=== PATIENT | female | born 2000 | race Caucasian/White ===

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

== ENCOUNTER 2020-05-30 13:18 | Emergency (ER) | payer OTHER ==
[~2020-05-30] VITALS: Ht 157.5 cm; Wt 152.4 kg
[~2020-05-30 13:18] MED LIST changes: -METH54TA; +METH54TA5
[2020-05-30] MEDS ORDERED: IBUPROFEN (13:25)
[2020-05-30 14:27] LABS: BASO % 0.4 % (0.0-1.0); EOS # 0.5 10^3/uL (0.0-0.5); EOS % 4.2 % (0.0-3.0); HEMATOCRIT 43.4 % (36.0-47.0); HEMOGLOBIN 14.6 g/dl (12.0-15.5); LYMPH # 2.4 10^3/uL (1.5-5.0); LYMPH % 21.4 % (24.0-44.0); MEAN CORPUSCULAR HGB CONC 33.6 g/dl (32.0-36.5); MEAN CORPUSCULAR VOLUME 89.1 fl (80.0-96.0); MONO # 0.7 10^3/uL (0.0-0.8); MONO % 6.5 % (0.0-5.0); NEUTROPHILS # 7.6 10^3/uL (1.5-8.5); NEUTROPHILS % 66.7 % (36.0-66.0); PLATELET COUNT, AUTOMATED 388 10^3/uL (150-450); RED BLOOD COUNT 4.87 10^6/uL (4.00-5.40); WHITE BLOOD COUNT 11.4 10^3/uL (4.0-10.0)
--- NOTE | 2020-05-30 15:24 | REP ---
Clinical: Pelvic pain. Technique: Transabdominal pelvic ultrasound followed by transvaginal examination for better evaluation of the endometrium and adnexa. Findings: Bladder is under distended and measures 4.1 x 1.3 x 2.3 cm. Anteverted uterus measures 8.9 x 3.8 x 4.6 cm. Endometrial complex measures 8.3 mm thickness. No discrete uterine or endometrial abnormalities identified. The bilateral ovaries are not visualized. No pelvic fluid or obvious adnexal mass lesion. Impression: Limited examination due to technical factors and body habitus. Normal uterus. Ovaries not visualized. Electronically Signed by Norman Desir MD 05/30/2020 03:15 P
[2020-05-30] MEDS ORDERED: ACETAMINOPHEN 500 MG TAB PO ONE (15:30)
[2020-05-30] MEDS ORDERED: NS 1,000 ML IV ONE (15:30)
[2020-05-30] MEDS ORDERED: KETOROLAC 30 MG/ML 1ML VIAL IV ONE (16:00)
[2020-05-30 16:55] VITALS: BP 121/58
[2020-05-30 16:57] LABS: CHLAMYDIA DNA AMPLIFICATION NEGATIVE (NEGATIVE); GC DNA AMPLIFICATION NEGATIVE (NEGATIVE)
== END 2020-05-30 17:43 | disposition home or self-care (01) ==
LOC: M ED 13:18
DX: N94.4 Primary dysmenorrhea (principal); E28.2 Polycystic ovarian syndrome; Z87.42 Personal history of other diseases of the female genital tract; Z87.442 Personal history of urinary calculi
CPT/HCPCS: 76830; 76856; 80047; 81001; 84702; 85025; 87210; 87661; 96361; 96374; 99284; J1885

== ENCOUNTER 2020-10-20 08:56 | Emergency (ER) | payer OTHER ==
[~2020-10-20] VITALS: Ht 160 cm; Wt 151.0 kg
[~2020-10-20 08:56] MED LIST changes: +IBUPROFEN
[2020-10-20] MEDS ORDERED: NS 1,000 ML IV ONE (09:15)
[2020-10-20 09:45] LABS: BASO % 0.1 % (0.0-1.0); EOS # 0.1 10^3/uL (0.0-0.5); EOS % 1.2 % (0.0-3.0); HEMATOCRIT 39.8 % (36.0-47.0); HEMOGLOBIN 13.2 g/dl (12.0-15.5); LYMPH # 1.5 10^3/uL (1.5-5.0); MEAN CORPUSCULAR HEMOGLOBIN 29.1 pg (27.0-33.0); MEAN CORPUSCULAR HGB CONC 33.2 g/dl (32.0-36.5); MEAN CORPUSCULAR VOLUME 87.7 fl (80.0-96.0); MONO # 0.6 10^3/uL (0.0-0.8); MONO % 5.8 % (0.0-5.0); NEUTROPHILS # 7.2 10^3/uL (1.5-8.5); NEUTROPHILS % 76.4 % (36.0-66.0); PLATELET COUNT, AUTOMATED 313 10^3/uL (150-450); RED BLOOD COUNT 4.54 10^6/uL (4.00-5.40); WHITE BLOOD COUNT 9.4 10^3/uL (4.0-10.0)
--- NOTE | 2020-10-20 10:15 | REP ---
INDICATION: 12wks with vag bleeding. COMPARISON: None. TECHNIQUE: Real-time sonographic evaluation of gravid uterus performed. FINDINGS: There is a single living intrauterine gestation. The estimated gestational age is 10 weeks 3 days based on a crown-rump length of 36 mm. The heart rate is 160 beats per minute. No subchorionic hemorrhage is seen. No gross adnexal region abnormality is seen. IMPRESSION: Viable intrauterine gestation 10 weeks 3 days, heart rate 160 beats per minute. No subchorionic hemorrhage. <Electronically signed by Vin Mejia > 10/20/20 [id number]
[2020-10-20 10:24] LABS: BLOOD UREA NITROGEN 6 MG/DL (7-18); CALCIUM LEVEL 9.1 MG/DL (8.5-10.1); CARBON DIOXIDE LEVEL 22 MEQ/L (21-32); CHLORIDE LEVEL 109 MEQ/L (98-107); CREATININE FOR GFR 0.75 MG/DL (0.55-1.30); GLUCOSE, FASTING 92 MG/DL (70-100); HCG, SERUM QUANTITATIVE 44526 MIU/ML; POTASSIUM SERUM 4.3 MEQ/L (3.5-5.1); SODIUM LEVEL 139 MEQ/L (136-145)
[2020-10-20 11:22] VITALS: BP 97/57
[2020-10-21] MEDS ORDERED: OMEP10CASR PO (02:49)
[2020-10-21] MEDS ORDERED: ZOFR4TAB16 PO (02:49)
[2020-10-21] MEDS ORDERED: CEPH500C PO (02:49)
== END 2020-10-20 11:24 | disposition home or self-care (01) ==
LOC: M ED 08:56
DX: O20.9 Hemorrhage in early pregnancy, unspecified (principal); Z3A.10 10 weeks gestation of pregnancy; Z79.899 Other long term (current) drug therapy; Z87.891 Personal history of nicotine dependence

== ENCOUNTER 2020-10-21 02:42 | Emergency (ER) | payer OTHER ==
[~2020-10-21] VITALS: Ht 160 cm; Wt 150.0 kg
[2020-10-21] MEDS ORDERED: ZOFR4TAB16 PO (02:49)
[2020-10-21] MEDS ORDERED: CEPH500C PO (02:49)
[2020-10-21] MEDS ORDERED: OMEP10CASR PO (02:49)
--- NOTE | 2020-10-21 04:50 | REPVR ---
PROCEDURE INFORMATION: Exam: US First Trimester, Transabdominal Exam date and time: 10/21/2020 4:19 AM Age: 20 years old Clinical indication: Lmp or gestational age (in weeks): 07/30/2020; Other: Vaginal bleeding; ; Additional info: Vaginal bleeding, 10-12 weeks TECHNIQUE: Imaging protocol: Real-time transabdominal obstetrical ultrasound of the maternal pelvis and a first trimester , less than 14 weeks 0 days, with image documentation. COMPARISON: No relevant prior studies available. FINDINGS: Gestation: Single live intrauterine is seen. pole is seen with crown-rump length of 4.4 cm corresponding to 11 weeks and 2 days gestation. Embryonic/ heart rate: heart rate is detected at 143 beats per minutes. Placenta: There is a small subchorionic hypoechoic area measuring 0.8 x 1.4 x 0.9 cm. Amniotic fluid: Amniotic fluid is normal for gestational age. BIOMETRY: Gestational age (AUA): 11 weeks and 2 days gestation by CRL. MATERNAL: Uterus: Unremarkable. Cervix: Unremarkable. Right adnexa: The right adnexa and ovary are obscured by gravid uterus and bowel gas. Left adnexa: The left adnexa and ovary are obscured by gravid uterus and bowel gas. Intraperitoneal space: No intraperitoneal free fluid. IMPRESSION: 1. Single Live IUP corresponding to 11 weeks and 2 days gestation by CRL. 2. Likely small subchorionic bleed noted measuring 0.8 x 1.4 x 0.9 cm. Follow-up is suggested. Electronically signed by: Stephen Kilgore On 10/21/2020 04:49:55 AM
[2020-10-21 05:00] VITALS: BP 130/58
== END 2020-10-21 05:25 | disposition home or self-care (01) ==
LOC: M ED 02:42
DX: O20.0 Threatened abortion (principal); E66.8 Other obesity; Z3A.11 11 weeks gestation of pregnancy; Z79.899 Other long term (current) drug therapy; O99.211 Obesity complicating pregnancy, first trimester

== ENCOUNTER → 2020-12-06 | Outpatient (CLI) | payer SELFPAY ==
[~2020-12-06] MED LIST changes: +CEPH500C PO; +OMEP10CASR PO; +ZOFR4TAB16 PO
== END ==
LOC: M LABSMTC 11:46
PROVIDERS: ATTEND Pediatrics
DX: Z20.822 Contact with and (suspected) exposure to COVID-19 (principal)

== ENCOUNTER → 2021-01-20 | Outpatient (REF) ==
[~2021-01-20] MED LIST changes: -ESCI20TA; +ESCI20TA16
== END ==
LOC: M LABSMTC 10:34
PROVIDERS: ATTEND Pediatrics
DX: Z11.52 Encounter for screening for COVID-19 (principal)

== ENCOUNTER → 2021-01-23 | Outpatient (REF) | LOC: M LABSMTC 10:31 | PROVIDERS: ATTEND Pediatrics | DX: Z11.52 Encounter for screening for COVID-19 (principal) ==

== ENCOUNTER 2021-02-06 21:37 | Outpatient (CLI) | payer OTHER ==
[~2021-02-06] VITALS: Ht 160 cm; Wt 150.9 kg
[2021-02-06 21:54] VITALS: BP 132/74
[2021-02-06] MEDS ORDERED: PREN29CH2 PO (22:27)
[2021-02-06 23:00] VITALS: BP 133/77
[2021-02-07] VITALS (7 sets, daily range): BP systolic 109–134; BP diastolic 56–80
--- NOTE | 2021-02-07 06:10 | IPNPDOC ---
Obstetrical Progress Note Date of Service Feb 07, 2021 Subjective Subjective/HPI: 20-year-old at 27+2 weeks' gestation. Final EDC of 05/14/21 by LMP consistent with a first trimester ultrasound. Presents today complaining of uterine cramping/contraction/pelvic discomfort. Denies any vaginal bleeding or loss of fluid. Reports regular movement. Denies headache, visual changes, shortness of breath, chest pain. course : obesity, nephrolithiasis, depression, ADHD SH: tonsillectomy, knee arthroscopy Objective: Normotensive. Normal heart rate. Afebrile Abdomen soft, nontender, nondistended. Uterine fundus , nontender. Extremities nonedematous, nontender Pelvic: Sterile speculum exam reveals no pooling, no vaginal bleeding, no abnormal discharge or foul odor. Negative nitrazine, negative ferning. Sterile vaginal/cervical exam reveals a closed long thick cervix. Transvaginal ultrasound, limited: Cervical length 3.6cm. No dynamic changes/funneling. EFM: Reactive, moderate variability, no decelerations Archer: no contractions Assessment/plan: 20 year-old at 27+2 weeks' gestation. No evidence of premature ruptured membranes, active labor, advanced cervical dilation, or shortened cervical length. Current maternal and condition is reassuring. -Routine third trimester precautions were reviewed -Follow-up in the office as scheduled Objective Vital Signs Date Time Temp Pulse Resp B/P (MAP) Pulse Ox O2 Delivery O2 Flow Rate FiO2 02/07/21 05:07 94 16 125/68 (87) 02/07/21 04:14 98.0 02/06/21 21:54 98 Room Air KISHORE GONZALEZ DO Feb 07, 2021 06:10
== END 2021-02-07 06:10 | disposition home or self-care (01) ==
LOC: M LDO 21:37
PROVIDERS: ATTEND Obstetrics & Gynecology
DX: O26.892 Other specified pregnancy related conditions, second trimester (principal); Z3A.27 27 weeks gestation of pregnancy
CPT/HCPCS: 76815; G0378; G0463

== ENCOUNTER → 2021-03-06 | Outpatient (CLI) | payer OTHER ==
[~2021-03-06] MED LIST changes: +PREN29CH2 PO
[2021-03-06 11:28] LABS: BASO % 0.2 % (0.0-1.0); EOS # 0.1 10^3/uL (0.0-0.5); EOS % 1.1 % (0.0-3.0); HEMATOCRIT 34.1 % (36.0-47.0); LYMPH # 1.5 10^3/uL (1.5-5.0); LYMPH % 13.1 % (24.0-44.0); MEAN CORPUSCULAR HEMOGLOBIN 29.6 pg (27.0-33.0); MEAN CORPUSCULAR HGB CONC 32.3 g/dl (32.0-36.5); MEAN CORPUSCULAR VOLUME 91.9 fl (80.0-96.0); MONO # 0.7 10^3/uL (0.0-0.8); MONO % 5.6 % (2.0-8.0); NEUTROPHILS # 9.3 10^3/uL (1.5-8.5); PLATELET COUNT, AUTOMATED 290 10^3/uL (150-450); RED BLOOD COUNT 3.71 10^6/uL (4.00-5.40); WHITE BLOOD COUNT 11.8 10^3/uL (4.0-10.0)
== END ==
LOC: M LAB 09:39
PROVIDERS: ATTEND Obstetrics & Gynecology Obstetrics
DX: O99.213 Obesity complicating pregnancy, third trimester (principal)

== ENCOUNTER 2021-03-12 20:54 | Outpatient (CLI) | payer OTHER ==
[~2021-03-12] VITALS: Ht 160 cm; Wt 153.2 kg
[2021-03-12 21:21] VITALS: BP 151/63
[2021-03-12 21:22] VITALS: BP 144/77
[2021-03-12 22:35] LABS: HEMATOCRIT 31.7 % (36.0-47.0); HEMOGLOBIN 10.5 g/dl (12.0-15.5); MEAN CORPUSCULAR HEMOGLOBIN 29.3 pg (27.0-33.0); MEAN CORPUSCULAR HGB CONC 33.1 g/dl (32.0-36.5); MEAN CORPUSCULAR VOLUME 88.5 fl (80.0-96.0); PLATELET COUNT, AUTOMATED 258 10^3/uL (150-450); RED BLOOD COUNT 3.58 10^6/uL (4.00-5.40); WHITE BLOOD COUNT 11.6 10^3/uL (4.0-10.0)
[2021-03-12 22:44] LABS: TOTAL PROTEIN,RANDOM URINE 32.5 MG/DL (0.0-12.0)
[2021-03-12 23:04] LABS: ALBUMIN 2.7 GM/DL (3.2-5.2); ALT/SGPT 12 U/L (12-78); AMYLASE 23 U/L (25-115); BILIRUBIN,TOTAL 0.2 MG/DL (0.2-1.0); BLOOD UREA NITROGEN 6 MG/DL (7-18); CALCIUM LEVEL 8.7 MG/DL (8.5-10.1); CARBON DIOXIDE LEVEL 22 MEQ/L (21-32); CHLORIDE LEVEL 111 MEQ/L (98-107); CREATININE FOR GFR 0.55 MG/DL (0.55-1.30); GLUCOSE, FASTING 109 MG/DL (70-100); LDH LACTATE DEHYDROGENASE 161 U/L (84-246); LIPASE 96 U/L (73-393); POTASSIUM SERUM 4.1 MEQ/L (3.5-5.1); SODIUM LEVEL 141 MEQ/L (136-145); TOTAL PROTEIN 6.1 GM/DL (6.4-8.2)
[2021-03-12 23:34] VITALS: BP 133/72
[2021-03-13] MEDS ORDERED: FLUCONAZOLE 50MG TABLET PO ONE (00:45)
--- NOTE | 2021-03-13 01:01 | IPNPDOC ---
Obstetrical Progress Note Date of Service Mar 13, 2021 Subjective Ms. Tamez is a 20yo G [id number] at 31+1 who sees a provider at [facility] regularly, but has Prime, and presents with multiple complaints... - decreased FM since 0930 until arrival, now moving. Reports has drank little water and has not eaten today due to n/v. - nausea/vomiting since 0930, denied sick contacts, denied f//c/uri sx. endorsed gerd well controlled on omeprazole. denied abdominal pain, diarrhea. reports still keeping some water down. now in triage symptoms have resolved and she is tolerating fluids without issue - vaginal spotting x1 this morning and once while wiping this evening, denied discharge, contractions, denied placenta previa, denied hx of sti, denied new sexual contacts or recent intercourse, denied abdominal pain - contractions - irregular x3-4d, non-painful, has not drank much water today due to n/v per above ROS: denied diarrhea, cp, sob, oliveros, visual changes, abd pain, f/c, body aches, uri sx, vaginal discharge, urinary sx, lof APC: hx GHTN, hypothyroidism, anemia on Fe, morbid obesity, persistent tachycardia, gerd on omeprazole, anxiety, depression, adhd, hx renal stones, recently quit smoking Objective Vital Signs Date Time Temp Pulse Resp B/P (MAP) Pulse Ox O2 Delivery O2 Flow Rate FiO2 03/12/21 23:34 115 133/72 (92) Tocometer Contractions: No Sterile Vaginal Examination Dilation: None Station: -3 Cervical Position: Posterior Postion/Presentation: Cephalic presentation Assessment and Plan Additional Comments Ms. Tamez is a 20yo G [id number] at 31+1 who sees a provider at [facility] regularly, but has Prime, and presents with multiple complaints... She has mild range BPs, appropriate for gestational age tracing, reactive without contractions. Decreased FM from 0930 this AM to arrival in triage no movement, now reports FM regularly - NST AGA, MVP 6.1cm, BPP 10/10 - this is all reassuring, educated on kick counts and hydration Nausea/vomiting since this morning at 0930, denied sick contacts, denied other symptoms of systemic illness, has resolved since arrival to triage - CMP/UA not suggestive of dehydration or electrolyte imbalance, LFTS/amylase/lipase all normal, afebrile, non-tachycardic - suspect viral gastroenteritis, patient to hydrate and if becomes PO intolerant or febrile to return Vaginal spotting x1 this morning and x1 while wiping in triage, on exam copious thick white discharge with positive RICKEY/WP for yeast, G/C pending will call if positive, C/T/H with CL 4.1cm without changes with valsalva, no placenta/vasa previa on TVUS - likely due to vaginal candidiasis, given fluconazole x1 in triage, return precautions for worsening symptoms Contractions x3-4d irregular and non painful - not seen on toco, C/T/H and CL 4.1cm without changes with valsalva - PTL is unlikely at this time given clinical findings, likely cramping due to yeast infection which was treated in triage with fluconazole Mild range BPs in triage, normotensive on last triage visit, history of GHTN in G1 - tox labs normal, denied si/sx of pre-e - concern given history that patient has developed GHTN, recommend follow up at primary provider for BP check tomorrow, patient to call in the morning, educated on si/sx of pre-e as return precautions DARIANA NATION DO Mar 13, 2021 01:01
== END 2021-03-13 01:20 | disposition home or self-care (01) ==
LOC: M LDO 20:54
PROVIDERS: ATTEND Obstetrics & Gynecology
DX: O36.8130 Decreased fetal movements, third trimester, not applicable or unspecified (principal); Z3A.31 31 weeks gestation of pregnancy; O26.893 Other specified pregnancy related conditions, third trimester; R25.2 Cramp and spasm; O23.593 Infection of other part of genital tract in pregnancy, third trimester; B37.9 Candidiasis, unspecified; O21.8 Other vomiting complicating pregnancy; O99.613 Diseases of the digestive system complicating pregnancy, third trimester; K21.9 Gastro-esophageal reflux disease without esophagitis; O99.213 Obesity complicating pregnancy, third trimester; E66.9 Obesity, unspecified; Z68.43 Body mass index [BMI] 50.0-59.9, adult; Z91.018 Allergy to other foods; Z79.899 Other long term (current) drug therapy
CPT/HCPCS: 36415; 59025; 80053; 81001; 82150; 82570; 83615; 83690; 84156; 84550; 85027; 87086; G0378; G0463

== ENCOUNTER 2021-05-13 11:17 | Inpatient (IN) | payer OTHER ==
[~2021-05-13] VITALS: Ht 160 cm; Wt 158.8 kg
[2021-05-13] VITALS (35 sets, daily range): BP systolic 116–181; BP diastolic 61–114
[2021-05-13] MEDS ORDERED: IRON15CH PO (11:28)
[2021-05-13] MEDS ORDERED: AUGM875T28 PO (11:28)
[2021-05-13] MEDS ORDERED: FURO20TA2 PO (11:28)
[2021-05-13] MEDS ORDERED: LABE100T5 PO (11:28)
--- NOTE | 2021-05-13 12:02 | REP ---
INDICATION: CHEST PAIN. COMPARISON: Comparison chest x-ray is from March 10, 2011. TECHNIQUE: Portable upright AP chest radiograph. FINDINGS: There is a diffuse peribronchial and interstitial pattern in the lung londono bilaterally. This may reflect viral or bronchospastic etiology. No focal infiltrate is seen. No pleural effusion is seen. Heart is not felt to be enlarged.. IMPRESSION: Diffusely prominent vascular and interstitial markings question viral or bronchospastic etiology. No focal infiltrate.. <Electronically signed by Duc Pendleton > 05/13/21 [id number]
[2021-05-13 13:08] LABS: BASO % 0.2 % (0.0-1.0); EOS # 0.2 10^3/uL (0.0-0.5); HEMATOCRIT 26.4 % (36.0-47.0); HEMOGLOBIN 8.2 g/dl (12.0-15.5); LYMPH # 1.3 10^3/uL (1.5-5.0); MEAN CORPUSCULAR HEMOGLOBIN 26.5 pg (27.0-33.0); MEAN CORPUSCULAR HGB CONC 31.1 g/dl (32.0-36.5); MEAN CORPUSCULAR VOLUME 85.2 fl (80.0-96.0); MONO # 0.6 10^3/uL (0.0-0.8); MONO % 6.7 % (2.0-8.0); NEUTROPHILS # 6.8 10^3/uL (1.5-8.5); NEUTROPHILS % 73.9 % (36.0-66.0); PLATELET COUNT, AUTOMATED 311 10^3/uL (150-450); WHITE BLOOD COUNT 9.3 10^3/uL (4.0-10.0)
[2021-05-13] MEDS ORDERED: LABETALOL 100MG/20ML VIAL IV STA ×3 (13:31→18:04)
[2021-05-13 13:44] LABS: ALBUMIN 2.5 GM/DL (3.2-5.2); ALT/SGPT 22 U/L (12-78); BILIRUBIN,DIRECT < 0.1 MG/DL (0.0-0.2); BILIRUBIN,TOTAL 0.1 MG/DL (0.2-1.0); BLOOD UREA NITROGEN 12 MG/DL (7-18); CARBON DIOXIDE LEVEL 23 MEQ/L (21-32); CHLORIDE LEVEL 110 MEQ/L (98-107); CK-MB VALUE MASS 1.9 NG/ML (<3.6); CPK CREATINE PHOSPHOKINASE 168 U/L (26-192); GLUCOSE, FASTING 85 MG/DL (70-100); MB/CK RELATIVE INDEX 1.13 (< OR =4); NT-PRO BNP 1191 PG/ML (<125); POTASSIUM SERUM 4.4 MEQ/L (3.5-5.1); SODIUM LEVEL 140 MEQ/L (136-145); TOTAL PROTEIN 5.7 GM/DL (6.4-8.2); TROPONIN I < 0.02 NG/ML (< 0.10)
[2021-05-13] MEDS ORDERED: FUROSEMIDE 20MG/2ML VIAL (J1940) IV ONE (13:45)
[2021-05-13] MEDS ORDERED: KETOROLAC 30 MG/ML 1ML VIAL IV ONE (13:45)
[2021-05-13] MEDS ORDERED: ASPIRIN 81 MG CHEW TABLET PO ONE (14:20)
[2021-05-13 14:53] LABS: RSV AMPLIFICATION NEGATIVE (NEGATIVE)
[2021-05-13] MEDS ORDERED: FERR1TAB8 PO (15:29)
[2021-05-13] MEDS ORDERED: ALBU8.5H INH (15:29)
[2021-05-13] MEDS ORDERED: MAGNESIUM *L&D* 4GM/100ML BAG (40MG/ML) IV ONE (15:40)
[2021-05-13] MEDS ORDERED: MAGNESIUM SULFATE IV SCH (16:00)
[2021-05-13] MEDS ORDERED: [UNRECOGNIZED DRUG - OTHER] IV SCH (16:00)
[2021-05-13] MEDS ORDERED: MAGNESIUM SULFATE IV ONE (16:00)
[2021-05-13] MEDS ORDERED: [UNRECOGNIZED DRUG - OTHER] IV ONE (16:00)
[2021-05-13] MEDS ORDERED: IBUPROFEN 600MG TAB PO PRN (16:25)
[2021-05-13] MEDS ORDERED: ACETAMINOPHEN TAB 650MG DOSE (2X325MG) PO PRN (16:25)
[2021-05-13] MEDS ORDERED: DOCUSATE SODIUM 100MG CAPSULE PO PRN (16:25)
[2021-05-13] MEDS ORDERED: ANUSOL HC CREAM 30GM TOP PRN (16:25)
[2021-05-13] MEDS ORDERED: CALCIUM GLUCONATE 1,000 MG in D5W MINI-BAG PLUS 100 ML IV PRN (16:25)
[2021-05-13] MEDS: LR 1,000 ML IV SCH (18:23)
[2021-05-13] MEDS: MAG Sulf (OBGYN) 20GM/500ML 20,000 MG in IV 1 EA IV SCH (18:23)
[2021-05-13] MEDS: NIFEdipine 30 MG XL TAB PO SCH (18:37)
--- NOTE | 2021-05-13 19:24 | HPEPDOC ---
General Date of Admission May 13, 2021 at 16:23 Date of Service: May 13, 2021 Chief Complaint Ms. Tamez is a 20yo s/p on c/b 2MLL presenting to the ER today for high blood pressures, shortness of breath and chest pain. She notably delivered and saw OBGYN at [facility], although she has . Her symptoms started on , she went to the [facility] ER where per report she had a normal CT PE, labs, and LE dopplers. On CT she had some atelectasis and a right lobe consolidation. She was discharged on labetalol 100mg BID, augmentin, and lasix 20mg/d. She grew concerned today when her symptoms have not improved with treatment. She describes the "chest pain" as a pressure like sensation, but this has resolved since arrival to the ER. Her shortness of breath is only present with movement and if she is laying flat. It is not present sitting up at rest. She does endorse a day cough that started this morning. She otherwise denied n/v/d, f/c, body aches, heavy vb, vaginal discharge, urinary symptoms. She denied visual changes, RUQ pain, or headaches. Home Medications Scheduled Amoxicillin/Potassium Clav (Augmentin 875-125 Tablet) 1 Each Tablet, 1 TAB PO BID, (Reported) Ferrous Sulfate (Ferrous Sulfate) 325 Mg Tablet, 325 MG PO DAILY, (Reported) Furosemide (Furosemide) 20 Mg Tablet, 20 MG PO DAILY, (Reported) Labetalol HCl (Labetalol HCl) 100 Mg Tablet, 100 MG PO BID, (Reported) Scheduled PRN Albuterol Sulfate (Albuterol Sulfate Hfa) 8.5 Gm Hfa.aer.ad, 1 PUFF INH QID PRN for SOB/WHEEZING, (Reported) Allergies Coded Allergies: Blueberry (Verified Allergy, Severe, 02/06/21) anaphylaxis Past Medical History Medical History morbid obesity, reported history of "ruptured ovarian cyst" requiring admission but no surgery, reported history of sepsis associated with an untreated UTI as a child, childhood asthma, remote history of anxiety and depression Surgical History tonsils and adenoids, left meniscus repair Family History Significant Family History: Heart disease ( in paternal grandmother), Hypertension (in maternal grandmother) Social History * Smoker: Denies Alcohol: Denies Drugs: denies Recent Travel/Sick Contacts: Denies: Recent travel, Recent sick contacts Psychosocial History: Anxiety, Depression A-FIB/CHADSVASC A-FIB History Current/History of A-Fib/PAF?: No Treatment Other anticoagulant ordered: lovenox Physical Examination General Exam: Positive: Alert, No Acute Distress ENT Exam: Positive: Atraumatic Neck Exam: Positive: Supple Chest Exam: Positive: Clear to auscultation, Normal air movement Heart Exam: Positive: Rate Normal, Normal S1, Normal S2 Abdomen Exam: Positive: Normal bowel sounds, Soft Extremity Exam: Positive: Edema (1+) Skin Exam: Positive: Nl turgor and temperature Neuro Exam: Positive: Normal Gait, Normal Speech, Reflexes 2+ Psych Exam: Positive: Mental status NL Vital Signs Vital Signs Date Time Temp Pulse Resp B/P (MAP) Pulse Ox O2 Delivery O2 Flow Rate FiO2 05/13/21 17:11 85 18 158/88 (111) 96 05/13/21 14:00 Room Air 05/13/21 11:17 97.5 Laboratory Data Labs 24H Laboratory Tests 2 05/13/21 12:34: Immature Granulocyte % (Auto) 3.2H, Neutrophils (%) (Auto) 73.9H, Lymphocytes (%) (Auto) 14.0L, Monocytes (%) (Auto) 6.7, Eosinophils (%) (Auto) 2.0, Baso phils (%) (Auto) 0.2, Neutrophils # (Auto) 6.8, Lymphocytes # (Auto) 1.3L, Monocytes # (Auto) 0.6, Eosinophils # (Auto) 0.2, Basophils # (Auto) 0.0, Nucleated Red Blood Cells % (auto) 0.0, Anion Gap 7L, Calcium Level 8.0L, Total Bilirubin 0.1L, Direct Bilirubin < 0.1, Aspartate Amino Transf (AST/SGOT) 18, Alanine Aminotransferase (ALT/SGPT) 22, Alkaline Phosphatase 118H, Total Creatine Kinase 168, Creatine Kinase MB 1.9, Creatine Kinase MB Relative Index 1.13, Troponin I < 0.02, PF-Mmr-V-Type Natriuretic Peptide 1191H, Total Protein 5.7L, Albumin 2.5L, Albumin/Globulin Ratio 0.8L, Thyroid Stimulating Hormone (TSH) 2.230 05/13/21 14:03: Coronavirus (COVID-19)(PCR) NEGATIVE, Influenza Type A (RT-PCR) NEGATIVE, Influenza Type B (RT-PCR) NEGATIVE, Respiratory Syncytial Virus (PCR) NEGATIVE CBC/BMP Laboratory Tests 05/13/21 12:34 Assessment/Plan Ms. Tamez is a 20yo s/p on c/b 2MLL presenting to the ER today for high blood pressures, shortness of breath and chest pain. She notably delivered and saw OBGYN at [facility], although she has . Her symptoms started on , she went to the [facility] ER where per report she had a normal CT PE, labs, and LE dopplers. On CT she had some atelectasis and a right lobe consolidation. She was discharged on labetalol 100mg BID, augmentin, and lasix 20mg/d. She grew concerned today when her symptoms have not improved with treatment. In the ED she had elevated blood pressures requiring 20mg IV labetalol x2. She was also given 20mg lasix IV, ASA 325mg PO, and 15mg toradol IV. She had normal labs per below with exception of elevated BNP to 1191. On CXR today no consolidations were seen and no cardiac enlargement was noted. She had a normal EKG today. On exam she has slight hyperreflexia at 3+ and BL +1 edema. On consult I diagnosed the patient with pre-eclampsia with severe features based on blood pressures requiring IV antihypertensives. She was given 4g Mg bolus and started on 2g/h maintenance. On arrival to [facility] she was again severe range and was given 30mg nifedipine XR for prolonged control with 40mg labetalol IV for acute control. CT PE: at [facility] per report from ED no clot, RUL effusion suggestive of pneumonia, bilateral atelectsis LE dopplers: at [facility] per report from ED negative Labs: CBC, Cr, glucose, LFTs, CKMB, troponin, COVID, flu a/B, RSV all negative/normal. UDS, P:C (cath), TSH pending. BNP elevated 1191. EKG: normal today CXR: today with diffuse prominent vasculature, no infiltrate/effusion. No cardiac enlargement. Suggested viral vs bronchospastic process. ECHO: pending from today Plan Pre-eclampsia with severe features - will continue on labetalol 100mg BID, adding nifedipine 30mg XR QD - IV antihypertensives PRN for persistent severe range BPs - plan to continue Mg at 2g/h until 24h coverage for seizure prevention - will repeat pre-eclampsia labs in the morning to trend and discontinue if remains normal - routine Mg checks - seizure precautions - clear liquid diet - bedside comode - TSH and UDS to rule out alternative causes pending Anemia of (per patient no history of pre- anemia) - starting on Fe - will add colace for prevention of constipation - will recheck CBC in the morning Elevated BNP, SOB, CP with normal EKG, CXR cardiac size, trops/CKMB. Previously CT suggesting pneumonia, CXR today not. Viral testing negative. - pending results from ECHO to rule out cardiac cause - will continue augmentin for possible pneumonia as prior consolidation resolved after administration - will consult hospitalist Dr. Kennedy that did not recommend any further work up from a cardiopulmonary standpoint, pending the ECHO - if cardiopulmonary work up after pending results are negative likely due to pleural effusion from pre-eclampsia Plan / VTE VTE Prophylaxis Ordered?: Yes DARIANA NATION DO May 13, 2021 19:24
[2021-05-13] MEDS: AUGMENTIN 875 MG TAB PO SCH (19:26)
[2021-05-13 19:54] LABS: TOTAL PROTEIN,RANDOM URINE 28.4 MG/DL (0.0-12.0)
[2021-05-13 19:56] LABS: AMPHETAMINES URINE REFLEX NEGATIVE (NEGATIVE); BARBITURATES URINE REFLEX NEGATIVE (NEGATIVE); BENZODIAZEPINES URINE REFLEX NEGATIVE (NEGATIVE); CANNABINOIDS URINE REFLEX NEGATIVE (NEGATIVE); COCAINE METABOLITE URINE REFLE NEGATIVE (NEGATIVE); METHADONE URINE REFLEX NEGATIVE (NEGATIVE); OPIATES URINE REFLEX NEGATIVE (NEGATIVE); PHENCYCLIDINE URINE REFLEX NEGATIVE (NEGATIVE)
[2021-05-13] MEDS ORDERED: ENOXAPARIN 30MG/0.3ML SYRINGE (J1650 PER 10MG) SC SCH (20:00)
[2021-05-13] MEDS: LABETALOL 100MG TAB PO SCH (20:44)
[2021-05-13] MEDS: ENOXAPARIN 40MG/0.4ML SYRINGE (J1650 PER 10MG) SC SCH (21:57)
[2021-05-13] MEDS: ACETAMINOPHEN 500 MG TAB PO PRN (22:21)
[2021-05-14] VITALS (30 sets, daily range): BP systolic 112–160; BP diastolic 68–104
[2021-05-14] MEDS: AUGMENTIN 875 MG TAB PO SCH ×4 (00:56→23:41)
[2021-05-14] MEDS: IBUPROFEN 800 MG TAB PO PRN ×3 (03:20→20:31)
[2021-05-14] MEDS: MAG Sulf (OBGYN) 20GM/500ML 20,000 MG in IV 1 EA IV SCH ×2 (04:28→14:36)
[2021-05-14 06:54] LABS: HEMATOCRIT 28.5 % (36.0-47.0); HEMOGLOBIN 8.7 g/dl (12.0-15.5); MEAN CORPUSCULAR HEMOGLOBIN 26.1 pg (27.0-33.0); MEAN CORPUSCULAR HGB CONC 30.5 g/dl (32.0-36.5); MEAN CORPUSCULAR VOLUME 85.6 fl (80.0-96.0); PLATELET COUNT, AUTOMATED 323 10^3/uL (150-450); RED BLOOD COUNT 3.33 10^6/uL (4.00-5.40); WHITE BLOOD COUNT 8.9 10^3/uL (4.0-10.0)
[2021-05-14 07:15] LABS: ALT/SGPT 26 U/L (12-78); BLOOD UREA NITROGEN 7 MG/DL (7-18); CALCIUM LEVEL 7.2 MG/DL (8.5-10.1); CARBON DIOXIDE LEVEL 24 MEQ/L (21-32); CHLORIDE LEVEL 108 MEQ/L (98-107); CREATININE FOR GFR 0.54 MG/DL (0.55-1.30); GLUCOSE, FASTING 84 MG/DL (70-100); SODIUM LEVEL 141 MEQ/L (136-145)
[2021-05-14 07:16] LABS: ALBUMIN 2.4 GM/DL (3.2-5.2); BILIRUBIN,TOTAL 0.3 MG/DL (0.2-1.0); TOTAL PROTEIN 5.7 GM/DL (6.4-8.2)
--- NOTE | 2021-05-14 07:17 | IPNPDOC ---
Text Note Date of Service The patient was seen on 05/14/21. NOTE This morning the patient denied n/v/d, cp, sob, oliveros, visual changes, abd pain, f/c, heavy vb, dc, urinary sx. She reports her initial CP/SOB has resolved and she only has SOB when she is sleeping, which he now feels she may have chronically. She did require O2 while sleeping. Home Medications Amoxicillin/Potassium Clav (Augmentin 875-125 Tablet) 1 Each Tablet, 1 TAB PO BID, (Reported) Ferrous Sulfate (Ferrous Sulfate) 325 Mg Tablet, 325 MG PO DAILY, (Reported) Furosemide (Furosemide) 20 Mg Tablet, 20 MG PO DAILY, (Reported) Labetalol HCl (Labetalol HCl) 100 Mg Tablet, 100 MG PO BID, (Reported) Albuterol Sulfate (Albuterol Sulfate Hfa) 8.5 Gm Hfa.aer.ad, 1 PUFF INH QID PRN for SOB/WHEEZING, (Reported) Allergies Blueberry (Verified Allergy, Severe, 02/06/21) anaphylaxis Past Medical History morbid obesity, reported history of "ruptured ovarian cyst" requiring admission but no surgery, reported history of sepsis associated with an untreated UTI as a child, childhood asthma, remote history of anxiety and depression Surgical History tonsils and adenoids, left meniscus repair Family History Significant Family History: Heart disease ( in paternal grandmother), Hypertension (in maternal grandmother) Social History * Smoker: Denies Alcohol: Denies Drugs: denies Recent Travel/Sick Contacts: Denies: Recent travel, Recent sick contacts Psychosocial History: Anxiety, Depression Physical Examination General Exam: Positive: Alert, No Acute Distress ENT Exam: Positive: Atraumatic Neck Exam: Positive: Supple Chest Exam: Positive: Clear to auscultation, Normal air movement Heart Exam: Positive: Rate Normal, Normal S1, Normal S2 Abdomen Exam: Positive: Normal bowel sounds, Soft Extremity Exam: Positive: Edema (1+) Skin Exam: Positive: Nl turgor and temperature Neuro Exam: Positive: Normal Gait, Normal Speech, Reflexes 2+ Psych Exam: Positive: Mental status NL Assessment/Plan Ms. Tamez is a 20yo s/p on c/b 2MLL presenting to the ER today for high blood pressures, shortness of breath and chest pain. She notably delivered and saw OBGYN at [facility], although she has . Her symptoms started on , she went to the [facility] ER where per report she had a nor mal CT PE, labs, and LE dopplers. On CT she had some atelectasis and a right lobe consolidation. She was discharged on labetalol 100mg BID, augmentin, and lasix 20mg/d. She grew concerned when her symptoms have not improved with treatment. And came to the [facility] ED last night. She had elevated blood pressures requiring 20mg IV labetalol x2. She was also given 20mg lasix IV, ASA 325mg PO, and 15mg toradol IV. She had normal labs per below with exception of elevated BNP to 1191. On CXR today no consolidations were seen and no cardiac enlargement was noted. She had a normal EKG today. On exam she has slight hyperreflexia at 3+ and BL +1 edema. On consult I diagnosed the patient with pre-eclampsia with severe features based on blood pressures requiring IV antihypertensives. She was given 4g Mg bolus and started on 2g/h maintenance. On arrival to [facility] she was again severe range and was given 30mg nifedipine XR for prolonged control with 40mg labetalol IV for acute control. She has had improved blood pressure control and reports this morning her symptoms have resolved. She did require O2 overn ight while sleeping. CT PE: at [facility] per report from ED no clot, RUL effusion suggestive of pneumonia, bilateral atelectsis LE dopplers: at [facility] per report from ED negative Labs: TSH, USD, P:C, CBC, Cr, glucose, LFTs, CKMB, troponin, COVID, flu a/B, RSV all negative/normal. BNP elevated 1191. EKG: normal in ER CXR: today with diffuse prominent vasculature, no infiltrate/effusion. No cardiac enlargement. Suggested viral vs bronchospastic process. ECHO: pending Current medications: labetalol 100mg BID, nifedipine 30mg XR QD Plan Pre-eclampsia with severe features - will continue on labetalol 100mg BID, adding nifedipine 30mg XR QD - IV antihypertensives PRN for persistent severe range BPs - plan to continue Mg at 2g/h until 24h coverage for seizure prevention (off 1600) - will repeat pre-eclampsia labs in the morning to trend and discontinue if remains normal - routine Mg checks - seizure precautions - clear liquid diet - patient may use bedside comode, bedpan, or boyer per her preference Anemia of (per patient no history of pre- anemia), CBC slightly improved this morning - continue Fe and colace Elevated BNP, SOB, CP with normal EKG, CXR cardiac size, trops/CKMB. Previously CT suggesting pneumonia, CXR today not. Viral testing negative. - pending results from ECHO to rule out cardiac cause - will continue augmentin for possible pneumonia as prior consolidation resolved after administration - will consult hospitalist Dr. Kennedy that did not recommend any further work up from a cardiopulmonary standpoint, pending the ECHO - if cardiopulmonary work up after pending results are negative likely due to pleural effusion from pre-eclampsia Suspected VARSHA - Patient to follow up with her PCM to do sleep study. Plan / VTE VTE Prophylaxis Ordered?: Yes - lovenox VS,Fishbone, I+O VS, Fishbone, I+O Laboratory Tests 05/13/21 12:34 05/14/21 06:34 Vital Signs Date Time Temp Pulse Resp B/P (MAP) Pulse Ox O2 Delivery O2 Flow Rate FiO2 05/14/21 05:36 73 20 123/75 (91) 05/14/21 04:41 98.4 05/13/21 17:11 96 05/13/21 14:00 Room Air I&O- Last 24 Hours up to 6 AM 05/14/21 06:00 Intake Total 2330 ml Output Total 2235 ml Balance 95 ml DARIANA NATION DO May 14, 2021 07:17
[2021-05-14] MEDS: ACETAMINOPHEN 500 MG TAB PO PRN ×2 (07:44→18:55)
[2021-05-14] MEDS: ENOXAPARIN 40MG/0.4ML SYRINGE (J1650 PER 10MG) SC SCH ×2 (08:11→20:31)
[2021-05-14] MEDS: NIFEdipine 30 MG XL TAB PO SCH (08:35)
[2021-05-14] MEDS: LABETALOL 100MG TAB PO SCH ×2 (08:35→20:30)
[2021-05-14] MEDS: PRENATAL VITAMINS CHEWABLE TABLET PO SCH (08:35)
[2021-05-14] MEDS: FERROUS SULFATE 325MG TAB PO SCH (08:37)
[2021-05-14] MEDS ORDERED: FUROSEMIDE 20 MG TAB PO SCH (09:00)
[2021-05-14] MEDS: LR 1,000 ML IV SCH (12:08)
--- NOTE | 2021-05-14 13:02 | ECHO ---
ECHOCARDIOGRAM DATE OF PROCEDURE: 05/13/2021 Age: Gender: Height: Weight: REFERRING PROVIDER: Dr. Ulisses Contreras. REASON FOR THE STUDY: Chest pain, shortness of breath, elevated blood pressure. Patient in delivery room. 2D MEASUREMENTS: IVS 0.9 cm LVPW 0.9 cm LV 5.1 cm Aortic root 3.1 cm Left atrium 4.1 cm Ascending aorta 3.0 cm IVC 2.7 cm DOPPLER MEASUREMENT Peak velocity across the LVOT 1.4 m/s Mitral E 1.2 Mitral A 0.75 with a ratio of 1.58 Maximum tricuspid valve velocity 2.8 m/s 2D COMMENTS: 1. Normal left ventricular size, wall thickness, and normal global left ventricular systolic function with an estimated LVEF of 65 to 70%. 2. Mildly enlarged left atrium. The right atrium and the right ventricle appear to be normal in size in limited views. 3. The atrial septum appeared to be normal without evidence of defect or shunt. 4. Normal aortic root. 5. Trace pericardial effusion noted. No evidence of cardiac tamponade. 6. The aortic valve, mitral valve, and tricuspid valve appear to be normal. The pulmonic valve and proximal pulmonary artery branches were not well visualized. 7. The inferior vena cava was dilated, central venous pressure mildly elevated. DOPPLER: It detects mild tricuspid regurgitation and mild mitral regurgitation. The calculated pulmonary artery systolic pressure varies between 30 to 40 mmHg. Assessment of the left ventricular diastolic function was normal. IMPRESSION: 1. Normal global left ventricular systolic function with a hyperdynamic left ventricle. Assessment of the left ventricular diastolic function was normal. 2. Mild mitral regurgitation with a mildly enlarged left atrium. 3. Mild tricuspid regurgitation with probably mild to moderate hypertension. 4. Trace, probably physiologic, pericardial effusion.
[2021-05-14] MEDS ORDERED: DIBUCAINE 1% OINTMENT 30GM TOP PRN (15:30)
[2021-05-14] MEDS ORDERED: DOCUSATE SODIUM 100MG CAPSULE PO PRN (15:30)
--- NOTE | 2021-05-14 16:53 | ECGEPIP ---
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
--- NOTE | 2021-05-14 16:55 | ECGEPIP ---
[facility] - ED Test Date: 2021-05-13 Pat Name: AUDREY KENT Department: Room: [place] [address] Gender: Female Flat Folder: HC : 2000 Requested By: EDER ELLIOTT Order Number: [id number] Reading MD: Lizzie Del Rio Measurements Intervals [place] Rate: 82 P: 45 ID: [id number] QRS: 33 QRSD: 70 T: 34 QT: 366 QTc: 427 Interpretive Statements Normal sinus rhythm decreased rate 05/13/21 Electronically Signed on 05-14-2021 16:55:38 EDT by Lizzie Del Rio
[2021-05-14] MEDS ORDERED: CALCIUM CARBONATE 500 MG CHEW U/D PO PRN (22:45)
[2021-05-15 02:00] VITALS: BP 140/86
[2021-05-15 06:00] VITALS: BP 138/88
[2021-05-15] MEDS ORDERED: ACET1TAB55 PO (07:51)
[2021-05-15] MEDS ORDERED: IBUP80TA PO (07:51)
[2021-05-15] MEDS ORDERED: NIFE1TAB52 PO (07:51)
--- NOTE | 2021-05-15 08:06 | DS.PDOC ---
Discharge Summary General Date of Admission May 13, 2021 at 16:23 Date of Discharge May 15, 2021 Discharge Summary HOSPITAL COURSE: Ms. Tamez is a 20 yo who is s/p an uncomplicated on 08May2021 at [facility] who was readmitted for chest pain, SOB, and severely elevated BP on 13May2021. She ruled in for pre eclampsia with severe features. She received 24 hours of IV magnesium. She also received Lasix. Her BP was controlled with Labetalol and nifedipine. She had an echo performed during her hospitalization that was unremarkable. Before her admission, she reportedly had negative lower extremity doppler studies and a normal chest CT PA. She diuresed significantly during her hospital stay and her SOB resolved completely. BP remained stable on nifedipine and labetalol. On 15May2021 she was meeting al discharge criteria. She had no SOB, was ambulating without issues, was not requiring any O2, had minimal lochia, and had no headaches, RUQ pain, or visual changes. DISCHARGE MEDICATIONS: Please see below. ALLERGIES: Please see below. PHYSICAL EXAMINATION ON DISCHARGE: VITAL SIGNS: Please see below. GENERAL: Sitting in chair. pleasant and conversant. NAD CARDIOVASCULAR EXAMINATION: RRR RESPIRATORY EXAMINATION: CTAB ABDOMINAL EXAMINATION: Fundus firm at U-2. No fundal tenderness. EXTREMITIES: Trace edema in lower extremities PSYCHIATRIC EXAMINATION: Affect appropriate ACTIVITY: Pelvic rest for 6 weeks DIET: Regular diet DISCHARGE PLAN: Discharge home DISPOSITION: Discharge home on 15May2021. DISCHARGE INSTRUCTIONS: 1. Pelvic rest for 6 weeks ITEMS TO FOLLOWUP ON ON OUTPATIENT: 1. 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 Walk in to the [place] [facility] office on 17May2021 for a BP check. DISCHARGE CONDITION: Stable. TIME SPENT ON DISCHARGE: Greater than 20 minutes. Vital Signs/I&Os Vital Signs Date Time Temp Pulse Resp B/P (MAP) Pulse Ox O2 Delivery O2 Flow Rate FiO2 05/15/21 06:00 97.6 80 18 138/88 (105) 98 Room Air 05/14/21 10:11 2.0 I&O- Last 24 Hours up to 6 AM 05/15/21 06:00 Intake Total 3600.1 ml Output Total 5300 ml Balance -1699.9 ml Discharge Medications Scheduled Ferrous Sulfate (Ferrous Sulfate) 325 Mg Tablet, 325 MG PO DAILY, (Reported) Labetalol HCl (Labetalol HCl) 100 Mg Tablet, 100 MG PO BID, (Reported) Nifedipine (Nifedipine ER) 30 Mg Tab.er.24, 30 MG PO DAILY Scheduled PRN Acetaminophen (Acetaminophen) 325 Mg Tablet, 650 MG PO Q4HP PRN for PAIN LEVEL 1-5 Albuterol Sulfate (Albuterol Sulfate Hfa) 8.5 Gm Hfa.aer.ad, 1 PUFF INH QID PRN for SOB/WHEEZING, (Reported) Ibuprofen (Ibuprofen) 800 Mg Tablet, 800 MG PO Q8HP PRN for PAIN LEVEL 6-10 Allergies Coded Allergies: Blueberry (Verified Allergy, Severe, 02/06/21) anaphylaxis LESLEE RANGEL DO May 15, 2021 08:06
[2021-05-15] MEDS: ENOXAPARIN 40MG/0.4ML SYRINGE (J1650 PER 10MG) SC SCH (08:17)
[2021-05-15] MEDS: AUGMENTIN 875 MG TAB PO SCH (08:17)
[2021-05-15] MEDS ORDERED: PRENATAL VITAMINS CHEWABLE TABLET PO SCH (09:00)
[2021-05-15] MEDS: FERROUS SULFATE 325MG TAB PO SCH (09:28)
[2021-05-15] MEDS: LABETALOL 100MG TAB PO SCH (09:29)
[2021-05-15] MEDS: PRENATAL VITAMINS CHEWABLE TABLET PO SCH (09:29)
[2021-05-15 09:30] VITALS: BP 172/86
[2021-05-15] MEDS: NIFEdipine 30 MG XL TAB PO SCH (09:30)
== END 2021-05-15 10:25 | disposition home or self-care (01) | DRG 776 ==
LOC: M ED 11:17 → M ED INP 16:23 → M LDI 17:53 → M OBS 05-14 17:49
PROVIDERS: ADMIT Obstetrics & Gynecology; ATTEND Obstetrics & Gynecology
DX: O14.15 Severe pre-eclampsia, complicating the puerperium (principal); O99.355 Diseases of the nervous system complicating the puerperium; O99.03 Anemia complicating the puerperium; D64.9 Anemia, unspecified; Z20.822 Contact with and (suspected) exposure to COVID-19; G47.33 Obstructive sleep apnea (adult) (pediatric); Z79.899 Other long term (current) drug therapy; Z91.018 Allergy to other foods

== ENCOUNTER → 2022-04-04 | Outpatient (REF) ==
[~2022-04-04] MED LIST changes: +ACET1TAB55 PO; +ALBU8.5H INH; +ALTA1TAB3 PO; +AUGM875T28 PO; +FERR1TAB8 PO; +FURO20TA2 PO; +IBUP80TA PO; +IRON15CH PO; +LABE100T5 PO; +NIFE1TAB52 PO; +OMEP-173 PO
== END ==
LOC: M LABSMTC 09:40
PROVIDERS: ATTEND Family Medicine
DX: Z20.822 Contact with and (suspected) exposure to COVID-19 (principal)

== ENCOUNTER → 2022-04-08 | Outpatient (REF) | LOC: M LABSMTC 09:45 | PROVIDERS: ATTEND Family Medicine | DX: Z20.822 Contact with and (suspected) exposure to COVID-19 (principal) ==